=== PATIENT | female | born 1960 | race Caucasian/White ===

== ENCOUNTER → 2016-12-09 | Outpatient (CLI) | payer OTHER | LOC: KOH-I 14:12 | DX: M25.551 Pain in right hip (principal); M25.561 Pain in right knee; M16.11 Unilateral primary osteoarthritis, right hip | CPT/HCPCS: 73502; 73564 ==

== ENCOUNTER → 2017-02-27 | Outpatient (CLI) | payer OTHER | LOC: MAMO 14:20 | DX: Z12.31 Encounter for screening mammogram for malignant neoplasm of breast (principal) | CPT/HCPCS: G0202 ==

== ENCOUNTER → 2021-03-06 | Outpatient (CLI) | payer OTHER ==
[~2021-03-06] MED LIST: CIPRO500 MG PO; FLAGYL500 MG PO
[2021-03-06 14:39] LABS: RED BLOOD COUNT 4.73 M/UL (4.00-5.10); WHITE BLOOD COUNT 11.2 K/UL (4.5-11.0)
[2021-03-06 15:08] LABS: BUN/CREATININE RATIO 17 (0-10)
[2021-03-08 07:10] LABS: VITAMIN D, 25-HYDROXY 22.3 ng/mL (30.0-100.0)
[2021-03-09 12:12] LABS: THYROXINE (T4) 8.5 ug/dL (4.5-12.0)
== END ==
LOC: LAB 13:40
PROVIDERS: Nurse Practitioner
DX: E78.5 Hyperlipidemia, unspecified (principal); E56.9 Vitamin deficiency, unspecified; J44.9 Chronic obstructive pulmonary disease, unspecified; M25.511 Pain in right shoulder; M19.011 Primary osteoarthritis, right shoulder
CPT/HCPCS: 36415; 71046; 73030; 80053; 80061; 84436; 84443; 84480; 85025